=== PATIENT | female | born 1940 | race Asian ===

== ENCOUNTER 2016-04-23 15:33 | Emergency (ER) | payer MEDICARE | END 2016-04-23 18:18 | disposition home or self-care (01) | DX: M54.5 Low back pain (principal); W10.9XXA Fall (on) (from) unspecified stairs and steps, initial encounter; M51.37 Other intervertebral disc degeneration, lumbosacral region; M85.80 Other specified disorders of bone density and structure, unspecified site; I10 Essential (primary) hypertension; E03.9 Hypothyroidism, unspecified; F17.200 Nicotine dependence, unspecified, uncomplicated ==

== ENCOUNTER 2016-08-11 10:03 | Outpatient (CLI) | payer MEDICARE | END 2016-08-11 10:04 | disposition EMS.NT | LOC: EMS 10:03 | PROVIDERS: ATTEND Surgery | DX: Z04.1 Encounter for examination and observation following transport accident (principal); V49.49XA Driver injured in collision with other motor vehicles in traffic accident, initial encounter; Y92.413 State road as the place of occurrence of the external cause ==

== ENCOUNTER 2022-12-02 13:40 | Emergency (ER) | payer MEDICARE ==
[2022-12-02 13:59] VITALS: BP 135/76; O2SAT 96
--- NOTE | 2022-12-02 14:05 | ED Physician Documentation ---
History of Present Illness - Stated complaint Stated Complaint: BILAT HIP PX - Chief complaint Chief Complaint: Ext Problem - History obtained from History obtained from: Patient (She has had atraumatic hip pain. The right one for 2 weeks, now the left for the last week. There is no injury. Initially Voltaren topically was helpful, now it is not.) PD PAST MEDICAL HISTORY - Past Medical History Cardiovascular: Hypertension Respiratory: None Endocrine/Autoimmune: HyPOthyroidism GI: None : None HEENT: None, Chronic vision loss Psych: None Musculoskeletal: None Derm: None - Past Surgical History Past Surgical History: Yes General: Appendectomy HEENT: Cataracts - Present Medications Home Medications: Ambulatory Orders Medication Instructions Recorded Confirmed lisinopriL [Lisinopril] 40 mg PO DAILY 08/21/14 12/25/14 Levothyroxine [Synthroid] 0.5 mcg PO QDAC 12/24/14 12/25/14 Aspirin [Aspir 81] 81 mg ORAL DAILY 12/25/14 12/25/14 Meloxicam [Mobic] 7.5 mg PO BID PRN #10 tablet 12/02/22 - Allergies Allergies/Adverse Reactions: Allergies Allergy/AdvReac Type Severity Reaction Status Date / Time hydrochlorothiazide AdvReac Unknown Verified 12/02/22 13:53 - Social History Does the pt smoke?: Yes Smoking Status: Current every day smoker - Immunizations Immunizations are current?: Yes PD ED PE NORMAL - Vitals Vital signs reviewed: Yes - General General: Alert and oriented X 3, No acute distress - Extremities Extremities: Other (The hips themselves are nontender with painless range of motion. She is more tender over the posterior pelvic brim and glutei. No rash or signs of infection. Normal gait with a cane.) - Neuro Neuro: Alert and oriented X 3, Normal speech Results - Vitals Vitals: Vital Signs - 24 hr 12/02/22 13:51 Temperature 36.0 C L Heart Rate 87 Respiratory 16 Rate Blood Pressure 135/76 H O2 Saturation 96 Oxygen O2 Source Room air - EKG (time done) ` EKG releavant findings:: EKG personally interpreted by author of this note. Relevant findings are: - Rads (name of study) X-rays of both hips demonstrate moderate osteoarthritis without acute issue. Relevant Findings:: Final report received, EMP independent interpretation of jluis sung PD Medical Decision Making - ED course ED course: 82-year-old woman with atraumatic hip pain and does have arthritis. No evidence of shingles, vascular issue. She is walking normally. She requested an anti- inflammatory. Departure - Departure Disposition: Home, Self Care Clinical Impression: Bilateral hip pain Condition: Good Record reviewed to determine appropriate education?: Yes Instructions: ED Spasm Back No Trauma Follow-Up: [facility] [Provider Group] - Within 1 week Prescriptions: Meloxicam [Mobic] 7.5 mg PO BID PRN #10 tablet PRN Reason: Pain Forms: PCP List Discharge Date/Time: 12/02/22 15:15
--- NOTE | 2022-12-02 15:18 | XRAY Report ---
PROCEDURE: Hips 3-4V BILAT INDICATIONS: b hip pain TECHNIQUE: 2 bilateral views of the hip were acquired. COMPARISON: None. FINDINGS: Bones: No fractures or dislocations. No suspicious bony lesions. There is mild bilateral hip joint space narrowing. There are small collar osteophytes. Soft tissues: No suspicious soft tissue calcifications or masses. IMPRESSION: Mild bilateral hip osteoarthritis. No acute bony abnormality. If there remains a high clinical concer n for fracture, consider cross-sectional imaging now. If pain persists, consider repeat x-ray in 10-1 4 days or cross-sectional imaging. Reviewed by: Eve Mckeon MD on 12/02/2022 3:17 PM PDT Approved by: Eve Mckeon MD on 12/02/2022 3:17 PM PDT Station ID: [id number]
== END 2022-12-02 15:15 | disposition home or self-care (01) ==
LOC: ED 13:40
DX: M25.552 Pain in left hip (principal); M25.551 Pain in right hip; I10 Essential (primary) hypertension; E03.9 Hypothyroidism, unspecified; Z79.82 Long term (current) use of aspirin; Z79.899 Other long term (current) drug therapy
CPT/HCPCS: 99283; 99284

== ENCOUNTER 2023-07-21 13:08 | Outpatient (CLI) | payer MEDICARE ==
--- NOTE | 2023-07-22 07:26 | XRAY Report ---
PROCEDURE: Cervical Spine 2-3V INDICATIONS: NECK PAIN TECHNIQUE: 3 view(s) of the cervical spine were acquired. COMPARISON: None. FINDINGS: Bones: The odontoid view is suboptimal. No definitive fractures or dislocations to the C7 level. St raightening of cervical curvature. Trace anterolisthesis of C5 on C6. No suspicious bony lesions. Mi ld degenerative disc and facet disease throughout the cervical spine. Osteopenia. Soft tissues: No prevertebral soft tissue swelling. IMPRESSION: 1. Odontoid view is suboptimal. Consider CT if clinically indicated. 2. No displaced fracture or traumatic subluxation. 3. Mild degenerative disc and facet disease. 4. Osteopenia. Reviewed by: Chaz Wyatt MD on 07/22/2023 7:25 AM PDT Approved by: Chaz Wyatt MD on 07/22/2023 7:25 AM PDT Station ID: [id number]
== END 2023-07-21 13:09 | disposition home or self-care (01) ==
LOC: DI 13:08
PROVIDERS: ATTEND Emergency Medicine
DX: M47.812 Spondylosis without myelopathy or radiculopathy, cervical region (principal); M50.31 Other cervical disc degeneration, high cervical region